=== PATIENT | male | born 1960 | race Caucasian/White ===

== ENCOUNTER 2020-05-31 06:12 | Inpatient (IN) | payer OTHER ==
[~2020-05-31] VITALS: Ht 182.9 cm; Wt 127.0 kg
[2020-05-31 06:24] VITALS: Ht 182.9 cm; Wt 127.0 kg
--- NOTE | 2020-05-31 06:33 | NUR ---
PT BIB [facility] UNIT FOR SOB X2 DAYS. PT LUNG ARE CTA. RESP IS EVEN WITH LABORED BREATHING. PT HAS HX OF A-FIB AND HTN. PT DENIES ANY CHEST PAIN. PT DENIES ANY NVD. PT STS HE TAKE MEDICATIONS FOR SOB, BUT RAN OUT AND HASN'T BEEN ABLE TO GET A REFILL. PT A&O X4, RESP LABORED BUT EVEN, EQUAL RISE AND FALL OF CHEST. MSE COMPLETED BY DR. MÉNDEZ. WILL CONTINUE TO MONITOR PT.
--- NOTE | 2020-05-31 07:07 | NUR ---
GIVE REPORT TO BRANDEN ZAMORA AND PASSED OFF PT.
--- NOTE | 2020-05-31 07:31 | NUR ---
FIRST CONTACT WITH PT. FOUND PT WITH O2 CANULA OFF. ENCOURAGED PT TO PUT MASK BACK ON. SAT RETURNED TO 98% WITH O2 ON. WAS IN HIGH 80'S WITHOUT O2.
[2020-05-31 08:00] LABS: BASOPHIL % 0.2 % (0-2); PLATELET COUNT 207 x10^3mcL (130-400); RED CELL DISTRIBUTION WIDTH 14.3 % (11.5-14.5)
[2020-05-31 08:01] LABS: CALCIUM 8.6 mg/dL (8.5-10.1); CARBON DIOXIDE 23.5 mmol/L (21-32); CHLORIDE SERUM 104 mmol/L (98-107); GFR1 > 60 mL/min; GLUCOSE SERUM 103 mg/dL (74-106); POTASSIUM SERUM 3.9 mmol/L (3.5-5.1); SODIUM SERUM 137 mmol/L (136-145)
[2020-05-31 08:07] LABS: ALBUMIN 3.5 g/dL (3.4-5.0); ALKALINE PHOSPHATASE 42 U/L (46-116); ALT/SGPT 33 U/L (16-63); AST/SGOT 37 U/L (15-37); BILIRUBIN TOTAL 0.86 mg/dL (0.20-1.00); TOTAL PROTEIN, SERUM 7.2 g/dL (6.4-8.2)
--- NOTE | 2020-05-31 08:50 | NUR ---
DOZING QUIETLY AT THIS TIME.
[2020-05-31] MEDS ORDERED: LASIX40 MG PO (09:43)
[2020-05-31] MEDS ORDERED: LANOXIN0.125 MG (09:44)
[2020-05-31] MEDS ORDERED: DILTIAZEM60 M1 (09:46)
--- NOTE | 2020-05-31 10:30 | NUR ---
OBSERVED NAPPING QUIETLY AT THIS TIME.
[2020-05-31 11:07] LABS: PHOSPHOROUS 3.7 mg/dL (2.5-4.9)
[2020-05-31 11:08] LABS: CHOLESTEROL/HDL RATIO 4.7
--- NOTE | 2020-05-31 11:35 | NUR ---
URINALS EMPTIED OF APPROX 2400 CC OF CLEAR YELLOW URINE. PT STATES HE FEELS MUCH BETTER AND THAT HE CAN BREATH MUCH BETTER.
--- NOTE | 2020-05-31 12:08 | NUR ---
REPORT TAKEN FROM ER NURSE FOREIGN, PER REPORT PATIENT IS ALERT AND ORIENTED, ON 3 LITER OF O2 SEA NC, AFIB WITH RATE OF 98. PENDING PATIENT ARRIVAL, ROOM SET UP COMPLETE
--- NOTE | 2020-05-31 12:09 | NUR ---
REPORT CALLED TO [facility]U ON 2ND FLOOR.
[2020-05-31 12:57] VITALS: BP 140/101
[2020-05-31 16:31] VITALS: BP 130/98
--- NOTE | 2020-05-31 19:09 | NUR ---
REPORT GIVEN TO AESTHETICIAN CARE ENDORSED.
--- NOTE | 2020-05-31 19:24 | NUR ---
AWAKE AND ALERT, ORIENTED TO NAME, PLACE, TIME AND SITUATION. SPEECH CLEAR AND APPROPRIATE. WATCHING TV AT THIS TIME. HOB ELEVATED 40 DEG. CALL LIGHT WITHIN EASY REACH. AFIB ON TELE, HR 92-107/MIN, DENIES HAVING CHEST PAIN OR CHEST DISCOMFORT. SALINE LOCK TO LEFT HAND. REINFORCED NEED TO USE CALL LIGHT TO CALL FOR ASSISTANCE, PLACED WITHIN EASY REACH.
[2020-05-31 21:00] VITALS: BP 118/81
--- NOTE | 2020-05-31 21:54 | NUR ---
eyes closed, breathing even and unlabored on 2lpm of o2 via nc. hob kept elevated 30 deg. call light within easy reach
--- NOTE | 2020-06-01 00:20 | NUR ---
RECEIVED PATIENT FROM NURSE QUESADA. PATIENT IN NO ACUTE DISTRESS AT THIS TIME. EVEN AND UNLABORED BREATHING NOTED ON NC. NO S/S OF SOB. A FIB ON TELE #[address], HR 104 AT THIS TIME. IV SALINE LOCK. BED IN LOWEST POSITION. CALL LIGHT WITHIN REACH. SIDE RAILS UP X2.
--- NOTE | 2020-06-01 00:24 | NUR ---
eyes closed, in no acute distress. afib on tele, hr 94/min.
--- NOTE | 2020-06-01 00:26 | NUR ---
endorsed care to nurse cardenas
[2020-06-01 05:59] VITALS: BP 136/82
--- NOTE | 2020-06-01 06:30 | NUR ---
REMAINS IN NO ACUTE DISTRESS. EU BREATHING NOTED ON NC. TELE IN PLACE. IV WNL. BED IN LOWEST POSITION. CALL LIGHT WITHIN REACH. SIDE RAILS UP X2.
--- NOTE | 2020-06-01 06:36 | NUR ---
WILL CONTINUE TO MONITOR. WILL ENDORSE CARE TO ONCOMING SHIFT NURSE
--- NOTE | 2020-06-01 07:07 | NUR ---
REPORT TAKEN FROM HADOOP DEVELOPER NURSE, PATIENT FOUND TO BE AWAKE AND ALERT AT THIS TIME WILL CONTINUE TO MONITOR.
[2020-06-01 07:48] LABS: CALCIUM 8.6 mg/dL (8.5-10.1); CARBON DIOXIDE 32.3 mmol/L (21-32); CHLORIDE SERUM 103 mmol/L (98-107); CREATININE SERUM 1.1 mg/dL (0.7-1.3); GFR1 > 60 mL/min; GLUCOSE SERUM 100 mg/dL (74-106); POTASSIUM SERUM 4.3 mmol/L (3.5-5.1); SODIUM SERUM 141 mmol/L (136-145)
[2020-06-01 08:14] VITALS: BP 171/93
[2020-06-01 10:27] LABS: BASOPHIL % 0.6 % (0-2); PLATELET COUNT 226 x10^3mcL (130-400); RED CELL DISTRIBUTION WIDTH 15.5 % (11.5-14.5)
[2020-06-01 11:58] VITALS: BP 119/89
--- NOTE | 2020-06-01 15:38 | NUR ---
PATIENT REQUESTED DOCUMENTATION THAT HE COULD GIVE TO HIS JOB TO EXCUSE HIS MISSING WORK. I PROVIDED THE PATIENT WITH THE APPROPRIATE FORM TO SEND TO HIS JOB.
--- NOTE | 2020-06-01 15:45 | NUR ---
PATIENT AMBULATING IN HALLWAY WITH PT, CAN BE HEARD CALLING THE PT A "LIAR" BECAUSE THE PT TOLD HIM THERE ARE COVID PATIENTS AT THE END OF THE [facility] AND HE CANNOT WALK THERE. THE PATIENT CONTINUED TO BELITTLE THE PT THEY TRIED TO ASSIST HIM WITH HIS AMBULATION.
[2020-06-01 16:45] VITALS: BP 140/73
--- NOTE | 2020-06-01 19:10 | NUR ---
RECEIVED PATIENT FROM DAY SHIFT NURSE. PATIENT IN NO ACUTE DISTRESS AT THIS TIME. AWAKE, ALERT AND ORIENTED X4. DENIES ANY PAIN AT THIS TIME. AFIB ON TELE, DENIES ANY CHEST PAIN/CHEST PRESSURE. EU BREATHING NOTED ON ROOM AIR, DENIES ANY SOB AT THIS TIME. LAYING WITH HOB ELEVATED AND WATCHING TV. IV WNL, SALINE LOCK. BED IN LOWEST POSITION. CALL LIGHT WITHIN REACH. SIDE RAILS UP X2.
--- NOTE | 2020-06-01 19:17 | NUR ---
REPORT GIVEN TO [facility]RA[facility] HELPER NURSE CARE ENDORSED
[2020-06-01 20:05] VITALS: BP 133/90
--- NOTE | 2020-06-02 00:35 | NUR ---
PT REMAINS IN NO ACUTE DISTRESS. SLEEPING AT THIS TIME. EU BREATHING NOTED ON ROOM AIR ON RA. TELE #[address] BED IN LOWEST POSITION. CALL LIGHT WITHIN REACH. SIDE RAILS UP X2.
[2020-06-02 05:05] VITALS: BP 140/82
--- NOTE | 2020-06-02 06:19 | NUR ---
PATIENT CLIPPED AND PREPPED FOR ANGIOGRAM. PODIATRY AT BEDSIDE DOING WOUND CARE AND REDRESSING RIGHT FOOT. PATIENT DENIES PAIN AT THIS TIME. TELE #[address] EU BREATHING NOTED ON ROOM AIR. RIGHT CHEST TUNNELED CATH DRESSING CDI. IV WNL. TOLERATED MEDS WELL. BP STILL HIGH AT CHARTED IN VITALS, DR TRAYLOR AWARE. NO FURTHER ORDERS AT THIS TIME. NEXT PRN MEDICATION IS NOT DUE AT THIS TIME. BED IN LOWEST POSITION. CALL LIGHT WITHIN REACH. SIDE RAILS UPX2.
--- NOTE | 2020-06-02 06:28 | NUR ---
PATIENT SLEEPING AT THIS TIME, REMAINS IN NO ACUTE DISTRESS. TELE #[address] EU BREATHING NOTED ON ROOM AIR. EVEN CHEST RISE. TOLERATED MEDICATIONS WELL THROUGHT OUT THE NIGHT, NO C/O PAIN. BED IN LOWEST POSITION. CALL LIGHT WITHIN REACH. WILL CONTINUE TO MONITOR, WILL ENDORSE CARE TO ONCOMING SHIFT NURSE.
--- NOTE | 2020-06-02 07:15 | NUR ---
RECIEVED REPORT FROM [facility] NURSE. PATIENT IS CURRENTLY AWAKE ALERT AND ORIENTED X 4. PATIENT IS ON TELEMETRY MONITORING AT THIS TIME AND HAS A HEART RATE OF 108/MIN. NO REPORT OF SOB AT THIS TIME. HISTORY OF AFIB. NO REPORT OF CHEST PAIN AT THIS TIME. NO SIGNS OR SYMPTOMS OF DISTRESS. DIGOXIN IS CURRENTLY BEING HELD DUE TO HIGH DIGOXIN LEVELS. PATIENT IS CURRENTLY ON CARDIZEM AND ELIQUIS. NO REPORT OF PAIN. IV SITE TO THE LEFT HAND. CURRENTLY PATENT AND INTACT AND SALINE LOCKED. SAFETY PRECAUTIONS IN PLACE. CALL LIGHT WITHIN REACH. WILL CONTINUE TO PROVIDE CARE FOR PATIENT.
[2020-06-02 07:30] LABS: CALCIUM 8.5 mg/dL (8.5-10.1); CARBON DIOXIDE 29.2 mmol/L (21-32); CHLORIDE SERUM 102 mmol/L (98-107); CREATININE SERUM 1.1 mg/dL (0.7-1.3); GFR1 > 60 mL/min; GLUCOSE SERUM 102 mg/dL (74-106); SODIUM SERUM 139 mmol/L (136-145)
[2020-06-02 08:02] VITALS: BP 104/64
[2020-06-02 08:21] LABS: PLATELET COUNT 259 x10^3mcL (130-400)
[2020-06-02 08:30] LABS: BASOPHIL % 0 % (0-2); RED CELL DISTRIBUTION WIDTH 15.2 % (11.5-14.5)
[2020-06-02 11:33] VITALS: BP 138/95
--- NOTE | 2020-06-02 15:57 | NUR ---
DIGOXIN LAB DRAW INIDICATES DIGOXIN LEVEL BACK IN THERAPEUTIC RANGE. INFORMED NURSE PRACTIONER PROSIDING OVER CARE REGARDING DIGOXIN LEVEL. CURRENTLY AWAITING FURTHER ORDERS AT THIS TIME.
[2020-06-02 16:58] VITALS: BP 148/98
--- NOTE | 2020-06-02 18:37 | NUR ---
PATIENT IS CURRENTLY AWAKE ALERT AND ORIENTED X 4. PATIENT HAS REMAINED IN AFIB THROUGHOUT SHIFT IN LOW 100'S. PATIENT REPORTS FEELING FINE AND DENIES CHEST PAIN AT THIS TIME. PATIENT SEEN BY BATTERY CONTAINER TESTER DOCTOR SU WHO DISCONTINUED CARDIZEM AND ORDERED SUBSEQUENT DIGOXIN LAB. DIGOXIN LAB LEVEL NOW IN THERAPEUTIC RANGE AND PATIENT PLACED BACK ON DIGOXIN BY LENDING MANAGER. PER DOCTOR SU, HE WANTS PATIENT TO STAY IN THE HOSPITAL ONE MORE DAY HE WANTS TO MONITOR PATIENT'S RESPONSE TO MEDICATION CHANGES. WILL ENDORSE ALL FURTHER CARE TO [facility] NURSE.
--- NOTE | 2020-06-02 19:29 | NUR ---
IN BED AAOX4 , PT DENY CHEST PAIN AT THE MOMENT , TELE AFIB HR 120. HL PATENT FLUSHING WELL , CALL LIGHT WITHIN PT'S REACH .
[2020-06-02 20:03] VITALS: BP 125/66
--- NOTE | 2020-06-03 04:24 | NUR ---
PT'S IN BED WITH EYES CLOSED , TELE AFIB
[2020-06-03 05:15] VITALS: BP 126/82
--- NOTE | 2020-06-03 06:47 | NUR ---
NO CHANGES OF CONDITION NOTED , TELE AFIB , HL PATENT .
--- NOTE | 2020-06-03 07:15 | NUR ---
0715AM: PATIENT IS RESTING IN BED QUEITLY. NO ADDITIONAL DISTRESS NOTED. CALL LIGHT WITHIN REACH. WILL CONT TO MONITOR.
[2020-06-03 07:53] LABS: BASOPHIL % 0.5 % (0-2); PLATELET COUNT 270 x10^3mcL (130-400)
--- NOTE | 2020-06-03 08:00 | NUR ---
EXPLAINED PLAN OF CARE AND PATIENT VERBALIZED UNDERSTANDING. PATIENT STATES THAT HE WANTS TO LEAVE AMA TO TODAY IF MD'S DOES NOT SEND HIM HOME. EXPLAINED RISK AND BENEFITS. ABLE TO CONVINCE THE PATIENT TO WAIT FOR DR SU WHEN HE DOES HIS ROUNDS. WILL CONT TO MONITOR.
[2020-06-03 08:02] LABS: CALCIUM 8.6 mg/dL (8.5-10.1); CARBON DIOXIDE 29.1 mmol/L (21-32); CHLORIDE SERUM 102 mmol/L (98-107); CREATININE SERUM 1.1 mg/dL (0.7-1.3); GFR1 > 60 mL/min; GLUCOSE SERUM 97 mg/dL (74-106); POTASSIUM SERUM 4.1 mmol/L (3.5-5.1); SODIUM SERUM 137 mmol/L (136-145)
[2020-06-03 08:03] LABS: RED CELL DISTRIBUTION WIDTH 15.2 % (11.5-14.5)
[2020-06-03 08:18] VITALS: BP 109/67
[2020-06-03 12:13] VITALS: BP 121/59
--- NOTE | 2020-06-03 14:32 | NUR ---
PATIENT WANTS TO GO AMA. DR SU WAS AT THE BEDSIDE AND SPOKE TO THE PATIENT ABOUT RISK AND BENEFITS. BUT PATIENT INSISTED IN LEAVING. DR SU PROVIDED THE PATIENT PRESCRIPTION. PATIENT SIGNED AMA FORM. ER PRECAUTION EXPLAINED BY PRIMARY NURSE. AWAITING FOR RIDES FROM FRIEND AT THIS TIME TO PICK HIM UP. STABLE CONDITION AT THIS TIME.
--- NOTE | 2020-06-03 14:35 | NUR ---
REMOVED IV FROM THE LEFT HAND. COVER SITE WITH GAUZE AND SECURE WITH BANDAID. NO BLEEDING NOTED. WILL CONT TO MONITOR.
--- NOTE | 2020-06-03 15:15 | NUR ---
PATIENT LEFT THE FACILITY IN A STABLE CONDITION PICKED UP BY SON.
== END 2020-06-03 15:14 | disposition left against medical advice (07) | DRG 292 ==
LOC: ED 06:12 → DU 09:56 → MU 09:56 → DU 15:29
PROVIDERS: Emergency Medicine; ADMIT Family Medicine; ATTEND Family Medicine
DX: I11.0 Hypertensive heart disease with heart failure (principal); I48.20 Chronic atrial fibrillation, unspecified; I50.23 Acute on chronic systolic (congestive) heart failure; Z20.828 Contact with and (suspected) exposure to other viral communicable diseases; Z53.29 Procedure and treatment not carried out because of patient's decision for other reasons; E78.5 Hyperlipidemia, unspecified; Z91.19 Patient's noncompliance with other medical treatment and regimen; I42.9 Cardiomyopathy, unspecified
CPT/HCPCS: 82962; 83880; G0378; J1160; J1940; J3490